=== PATIENT | female | born 1955 | race Caucasian/White ===

== ENCOUNTER → 2017-07-06 08:29 | Outpatient (CLI) | payer OTHER, SELFPAY ==
--- NOTE | 2017-07-06 | DI.CT.S_ITS ---
PROCEDURE: CT HEAD/BRAIN WO CON INDICATIONS: SUBDERAL HEMATOMA TECHNIQUE: Noncontrast 4.5 mm thick angled axial sections acquired from the foramen magnum to the vertex, with coronal and sagittal reformats. For radiation dose reduction, the following was used: automated exposure control, adjustment of mA and/or kV according to patient size. COMPARISON: [facility], CT, HEAD WITHOUT CONTRAST, 06/07/2017, 15:24. [facility], CT, HEAD WITHOUT CONTRAST, 05/21/2017, 16:47. FINDINGS: Image quality: Excellent. CSF spaces: Basal cisterns are patent. No extra-axial fluid collections. Ventricles are normal in size and shape. Brain: No midline shift. No intracranial masses or hemorrhage. Eason-white matter interface is normal. Skull and face: Calvarium and visualized facial bones are intact, without suspicious lesions. Sinuses: Visualized sinuses and mastoids are clear. IMPRESSION: No subdural hematoma found, normal appearing brain parenchyma. Dictated by: Cristian Fisher M.D. on 07/06/2017 at 9:01 Approved by: Cristian Fisher M.D. on 07/06/2017 at 9:04
== END ==
PROVIDERS: Family Provider Family Medicine; PCP Family Medicine; Visit Provider Family Medicine
DX: S06.5X9A Traumatic subdural hemorrhage with loss of consciousness of unspecified duration, initial encounter (principal)
CPT/HCPCS: 70450

== ENCOUNTER 2017-10-13 18:51 | Emergency (ER) | payer OTHER, SELFPAY ==
[2017-10-13] VITALS (7 sets, daily range): BP systolic 116–142; BP diastolic 71–89; PULSE 86–102; RESP 12–16; TEMP 37; O2SAT 97–100
--- NOTE | 2017-10-13 19:03 | DI.RAD.S_ITS ---
PROCEDURE: XR CHEST 1V INDICATIONS: chest pain TECHNIQUE: One view of the chest was acquired. COMPARISON: None. FINDINGS: Surgical changes and devices: None. Lungs and pleura: No pleural effusions or pneumothorax. Lungs are clear. Mediastinum: Mediastinal contours appear normal. Heart size is normal. Bones and chest wall: No suspicious bony lesions. Overlying soft tissues appear unremarkable. IMPRESSION: No acute cardiopulmonary disease process. Dictated by: Delaney Mcdermott MD, PhD on 10/13/2017 at 19:52 Approved by: Delaney Mcdermott MD, PhD on 10/13/2017 at 19:52
[2017-10-13 19:17] LABS: Prothrombin Time 10.8 SECONDS (10.1-12.7)
[2017-10-13 19:19] LABS: PTT Partial Thromboplastin Tim 27 SECONDS (26.4-36.2)
[2017-10-13 19:22] LABS: Add Manual Diff / Slide Review NO; Alanine Aminotransferase 18 IU/L (9-52); Albumin 4.5 g/dL (3.5-5.0); Albumin Globulin Ratio 1.4 (1.0-2.8); Alkaline Phosphatase 92 U/L (38-126); Aspartate Aminotransferase 22 IU/L (14-36); BUN Creatinine Ratio 22.2 (6-22); Basophils Percent Auto 0.6 % (0-2); Bilirubin Total 0.4 mg/dL (0.2-1.3); Blood Urea Nitrogen 20 mg/dL (7-17); Calcium 9.3 mg/dL (8.4-10.2); Carbon Dioxide 25 mmol/L (22-32); Chloride 103 mmol/L (98-107); Creatine Kinase 113 U/L (30-135); Eosinophils Percent Auto 3.2 % (2-4); Estimated Glomerular Filt Rate > 60.0 mL/min (>60); Globulin 3.2 g/dL (1.7-4.1); Glucose 187 mg/dL (80-110); HEMOLYSIS < 15 (0-50); Hematocrit 41.2 % (36-46); Hemoglobin 13.9 g/dL (12.0-16.0); Lipase 340 U/L (23-300); Lymphocytes Percent Auto 36.4 % (25-40); Mean Corpuscular HGB Conc 33.7 % (30-36); Mean Corpuscular Hemoglobin 29.7 PG (26-34); Mean Corpuscular Volume 88.1 fL (80-100); Monocytes Percent Auto 7.1 % (3-14); Neutrophils Absolute Auto 4800 /uL (3000-5900); Neutrophils Percent Auto 52.7 % (50-75); Platelet Count 250 X10^3/uL (150-400); Potassium 4.2 mmol/L (3.4-5.1); Red Blood Cell Count 4.68 X10^6/uL (4.0-5.2); Red Cell Distribution Width 14.5 % (11.6-14.8); Sodium 141 mmol/L (137-145); Total Protein 7.7 g/dL (6.3-8.2); White Blood Cell Count 9.2 X10^3/uL (4.5-11.0)
[2017-10-13 19:35] LABS: Troponin I < 0.012 ng/mL (0.01-0.034)
[2017-10-13 19:57] LABS: CKMB % Relative Index 1.9 % (1.5-5.0); Creatine Kinase MB 2.13 ng/mL (<2.37)
--- NOTE | 2017-10-13 19:58 | ED.CHESTPAIN ---
HPI - Chest Pain General Chief Complaint: Chest Pain Stated Complaint: CHEST PAIN Time Seen by Provider: 10/13/17 19:12 Source: patient Mode of arrival: ambulatory Limitations: no limitations History of Present Illness HPI narrative: 62-year-old with history of hypothyroidism presents to the emergency department with retrosternal chest pressure that woke her from sleep at 4 o'clock this morning. It has been consistent throughout the day and peaked at a 7/10 but is currently a 3/10. She denies provocation or palliation of her symptoms but does admit to some radiation to her jaw and teeth. She denies associated symptoms such as dizziness, weakness or lightheadedness. She has no nausea or vomiting. She denies any change in diet or medications. Related Data Home Medications Medication Instructions Recorded Confirmed levothyroxine 150 mcg PO SEE INSTRUCTIONS #0 12/05/15 sucralfate 1 gm PO BID #0 12/05/15 [ACIDOPHILUS ] 1 tab PO QDAY #0 06/07/17 aspirin 81 mg PO HS #0 06/07/17 nortriptyline 10 mg PO HS #0 06/07/17 ranitidine HCl 150 mg PO BID #0 06/07/17 Previous Rx's Medication Instructions Recorded nitroglycerin 0.4 mg SL Q5-15M PRN #30 tab 10/13/17 Allergies Allergy/AdvReac Type Severity Reaction Status Date / Time No Known Drug Allergies Allergy Verified 10/13/17 19:58 Review of Systems Review of Systems All systems reviewed & are unremarkable except as noted in HPI and below Constitutional Denies chills, Denies fever(s), Denies lethargy and Denies weakness Eyes Denies change in vision, Denies eye discharge, Denies irritation and Denies loss of vision ENT Ears, Nose, Mouth, and Throat: Denies change in voice, Denies neck pain and Denies sore throat Cardiovascular Reports chest pain, Denies irregular heart rhythm, Denies lightheadedness, Denies palpitations, Denies dyspnea, Denies dyspnea on exertion and Denies orthopnea Respiratory Denies cough, Denies dyspnea, Denies dyspnea on exertion and Denies wheezing Gastrointestinal Gastrointestinal: Denies abdominal pain, Denies change in bowel habits, Denies diarrhea, Denies nausea and Denies vomiting Genitourinary Denies hematuria, Denies flank pain, Denies urinary incontinence and Denies urinary urgency Musculoskeletal Denies neck pain Integumentary/Breasts Denies pruritus, Denies erythema, Denies rash and Denies wounds Neurologic Denies confusion, Denies loss of vision and Denies weakness Psychiatric Denies anxiety, Denies confusion, Denies depression, Denies homicidal ideation and Denies suicidal ideation Endocrine Denies palpitations Hematologic/Lymphatic Denies easy bruising Allergic/Immunologic Denies wheezing PFSH Surgical History Status post tubal ligation Social History Smoking Status: Former smoker Exam Narrative Exam Narrative: Pleasant 62-year-old female resting comfortably and in no obvious distress Initial Vital Signs Initial Vital Signs: Vital Signs Temperature 98.6 F 10/13/17 19:00 Pulse Rate 96 H 10/13/17 19:00 Respiratory Rate 16 10/13/17 19:00 Blood Pressure 142/89 H 10/13/17 19:00 Pulse Oximetry 100 10/13/17 19:00 Const General: cooperative and well developed Nutritional Appearance: well nourished Orientation: alert, awake, oriented x3 and not confused HENMN Head: normocephalic and atraumatic Ears: external ears normal and TM's normal bilaterally Nose: external nose normal and No nasal discharge Face and sinus: sinuses nontender, face symmetric, no sinus tenderness and No dry mucous membranes Mouth: oral mucosae normal and moist mucous membranes Teeth and gingiva: dentition normal Throat: tonsils normal and uvula midline Eyes General: appearance normal, both eyes and all related structures Eyelids: eyelids normal Conjunctivae: conjunctivae normal Sclera: sclerae normal Pupils: PERRL EOM: EOM intact bilaterally Neck Neck: normal visual inspection, trachea midline, No lymphadenopathy, No midline deformity and No JVD Lymphatic: No lymphedema Chest Chest: normal inspection of the chest Resp Effort & Inspection: normal respiratory effort, able to speak in complete sentences, no respiratory distress and no use of accessory muscles Auscultation: clear to auscultation bilaterally, no rales, no rhonchi and no wheezes Cardio Rate: regular rate Rhythm: regular rhythm Heart Sounds: no click, no gallops, no murmurs and no rubs Pulses: normal peripheral pulses GI Inspection: non-distended Palpation: soft, no hepatosplenomegaly, No guarding, No pulsatile mass and No tender Auscultation: normal bowel sounds Back/Spine/Pelvis Back: No CVA tenderness Cervical Spine: cervical ROM normal and No pain with cervical ROM Thoracic/Lumbar Spine: thoracic and lumbar spine normal to inspection Skin General: no rashes or lesions noted, No jaundice and No petechiae Neuro General: alert, oriented x3, gait normal and no focal motor deficits Speech: speech normal Extrem General: full ROM, no clubbing, cyanosis or edema, no pedal edema and no calf tenderness Psych Appearance: well kempt Mental Status: mental status grossly normal Attitude: cooperative Thought Content: normal and suicidality Judgment: judgment good Scores HEART Score Heart Score history: Slightly Suspicious Heart Score EKG: Normal Heart Score Age: 45-64 years old Heart Score risk factors: 1-2 risk factors Heart Score troponin: < or = to normal limit Heart Score Total: 2 Course Orders Ordered: Discontinued Medications Nitroglycerin (Nitrostat) 0.4 mg SL [id number] PRN PRN Reason: Chest Pain Last Admin: 10/13/17 21:19 Dose: 0.4 mg Admin: 10/13/17 21:03 Dose: 0.4 mg Vital Signs - 8 hr 10/13/17 21:19 10/13/17 21:50 10/13/17 22:39 Pulse Rate 102 H 97 H 96 H Respiratory Rate 13 14 Blood Pressure 132/84 H Blood Pressure [Right Arm] 116/71 124/76 H Pulse Oximetry 98 98 10/13/17 22:54 Pulse Rate 87 Respiratory Rate 16 Blood Pressure 124/76 H Blood Pressure [Right Arm] Pulse Oximetry 98 MDM - Chest Pain Lab Data Result diagrams: 10/13/17 19:00 10/13/17 19:00 Lab Results 10/13/17 10/13/17 10/13/17 Range/Units 19:00 19:00 19:00 WBC 9.2 (4.5-11.0) X10^3/uL RBC 4.68 (4.0-5.2) X10^6/uL Hgb 13.9 (12.0-16.0) g/dL Hct 41.2 (36-46) % MCV 88.1 (80-100) fL MCH 29.7 (26-34) PG MCHC 33.7 (30-36) % RDW 14.5 (11.6-14.8) % Plt Count 250 (150-400) X10^3/uL Neut % (Auto) 52.7 (50-75) % Lymph % (Auto) 36.4 (25-40) % [place] % (Auto) 7.1 (3-14) % Eos % (Auto) 3.2 (2-4) % Baso % (Auto) 0.6 (0-2) % Neut # (Auto) 4800 (5546-4612) /uL PT 10.8 (10.1-12.7) SECONDS INR 1.0 (0.9-1.3) APTT 27 (26.4-36.2) SECONDS Sodium 141 (137-145) mmol/L Potassium 4.2 (3.4-5.1) mmol/L Chloride 103 (98-107) mmol/L Carbon Dioxide 25 (22-32) mmol/L BUN 20 H (7-17) mg/dL Creatinine 0.90 (0.52-1.04) mg/dL Estimated GFR > 60.0 (>60) mL/min BUN/Creatinine Ratio 22.2 H (6-22) Glucose 187 H (80-110) mg/dL Calcium 9.3 (8.4-10.2) mg/dL Total Bilirubin 0.4 (0.2-1.3) mg/dL AST 22 (14-36) IU/L ALT 18 (9-52) IU/L Alkaline Phosphatase 92 (38-126) U/L Total Creatine Kinase 113 (30-135) U/L CK-MB (CK-2) 2.13 (<2.37) ng/mL CK-MB (CK-2) Rel Index 1.9 (1.5-5.0) % Troponin I < 0.012 (0.01-0.034) ng/mL Total Protein 7.7 (6.3-8.2) g/dL Albumin 4.5 (3.5-5.0) g/dL Globulin 3.2 (1.7-4.1) g/dL Albumin/Globulin Ratio 1.4 (1.0-2.8) Lipase 340 H (23-300) U/L Discharge Plan Departure Patient Disposition: Home Clinical Impression: Chest pain Discharge Date/Time: 10/13/17 22:55 Interventions: ED Discharge Assessment Last Done: 10/13/17 22:54 Instructions: DI for Chest Pain Activity Restrictions/Additional Instructions: *You have been diagnosed with [ chest pain ] *What to do: *Take medications as directed *Follow up with your primary care provider in 2-3 days, call for an appointment. Let them know you were seen in the Emergency Department and that we ask that you be seen in follow up *Return to ER if you should have any new, worsening or concerning symptoms, such as [ worsening pain, shortness of breath, nausea, vomiting or other bothersome symptoms] Prescriptions: New nitroglycerin 0.4 mg tablet, sublingual 0.4 mg SL Q5-15M PRN (Reason: chest pain) Qty: 30 RF: 0 No Action levothyroxine 150 MCG tablet 150 mcg PO SEE INSTRUCTIONS Qty: 0 RF: 0 sucralfate 1 GM tablet 1 gm PO BID Qty: 0 RF: 0 nortriptyline 10 MG capsule 10 mg PO HS Qty: 0 RF: 0 ranitidine HCl 150 MG tablet 150 mg PO BID Qty: 0 RF: 0 aspirin 81 MG tablet,delayed release (DR/EC) 81 mg PO HS Qty: 0 RF: 0 [ACIDOPHILUS ] 1 tab PO QDAY Qty: 0 RF: 0 Referrals: Rosaura Dietz MD [Primary Care Provider] -
[2017-10-13] MEDS: NITROGLYCERIN 0.4 MG SL TAB SL ×2 (21:03→21:19)
--- NOTE | 2017-10-13 21:54 | PC.NURSE ---
assessed patient after second nitro. pt. pain down to a 1/10. Refuses third ntg. feels much better. VS back to patient's normal range.
== END 2017-10-13 22:55 | disposition home or self-care (01) ==
PROVIDERS: Emergency Provider Emergency Medicine; Family Provider Family Medicine; PCP Family Medicine
DX: R07.89 Other chest pain (principal)
CPT/HCPCS: 71045; 80053; 82550; 82553; 83690; 84484; 85025; 85610; 85730; 93005; 93010; 99283; 99285

== ENCOUNTER → 2017-11-29 13:47 | Outpatient (CLI) | payer OTHER, SELFPAY ==
--- NOTE | 2017-11-29 | DI.ECHO.S_ITS ---
[facility]---------+ [facility] +---------+ : : [address] [place] : : : : [id number] : : : : Phone: [phone]+ Echocardiogram Report + + :Name: BASILIO VALDEZ Study Date: 11/29/2017 Height: 68 in : :[facility] Weight: 179 lb : : Gender: Female BSA: 1.9 m2 : :: 1955 Age: 62 yrs BP: 116/72 mmHg: :Reason For Study: Palpitations : :Ordering Physician: Isis : :Emily Performed By: Rosi Fernández : :Referring: Dr. Rosaura Dietz : + + Interpretation Summary The left ventricle is normal in size. The ejection fraction is estimated to be 35-40%. There is moderate global hypokinesis of the left ventricle. There is a significant dyssynchronous contraction pattern, consistent with a conduction abnormality. The right ventricle is normal size. The right ventricular systolic function is normal. In apical 4 chamber views, RV apex appears to be hypokinetic. There is mild tricuspid regurgitation. The right ventricular systolic pressure is estimated to be at least 34 mmHg based on an estimated right atrial pressure of 3 mm Hg. The ascending aorta is mildly enlarged. The patient had frequent PVCs during the exam. Procedure: A two-dimensional transthoracic echocardiogram with color flow and Doppler was performed. The study quality was technically adequate. There is no prior echocardiogram noted for this patient. The heart rate ranged between 80-86 bpm during the study. The patient had frequent PVCs during the exam. Left Ventricle: The left ventricle is normal in size. There is normal left ventricular wall thickness. There is no thrombus. A false chord is noted (normal variant). The ejection fraction is estimated to be 35-40%. There is moderate global hypokinesis of the left ventricle. There is a significant dyssynchronous contraction pattern, consistent with a conduction abnormality. MV E/A: 0.53. Right Ventricle: The right ventricle is normal size. A calcified moderator band is seen in the right ventricle. The right ventricular systolic function is normal. In apical 4 chamber views, RV apex appears to be hypokinetic. Atria: The left atrial size is normal. Right atrial size is normal. The interatrial septum is intact with no evidence for an atrial septal defect. Mitral Valve: The mitral valve leaflets appear normal. There is no evidence of stenosis, fluttering, or prolapse. There is trace mitral regurgitation. Aortic Valve: The aortic valve opens well. The aortic valve is not well visualized. There is no aortic valve stenosis. No aortic regurgitation is present. Tricuspid Valve: The tricuspid valve is normal. There is mild tricuspid regurgitation. The right ventricular systolic pressure is estimated to be at least 34 mmHg based on an estimated right atrial pressure of 3 mm Hg. Pulmonic Valve: The pulmonic valve is not well seen, but is grossly normal. There is mild pulmonic regurgitation. Great Vessels: The aortic root is normal size. The ascending aorta is mildly enlarged. The aortic arch is at the upper limits of normal in size. The IVC is of normal diameter and collapses greater than 50% with a sniff. This suggests a low right atrial pressure of 3 mm Hg. Pericardium/ Pleura There is no pericardial effusion. There is no pleural effusion. MMode/2D Measurements & Calculations LVIDd: 5.2 cm Ao root diam: 3.7 cm LVIDs: 3.6 cm Aortic Jxn: 2.8 cm FS: 30.0 % asc Aorta Diam: 3.6 cm EPSS: 1.5 cm Ao Arch Diam (Prox Trans): 3.3 cm IVSd: 0.98 cm LVPWd: 0.81 cm LV miles. diameter/BSA (cm/m^2): 2.7 LV sys. diameter/BSA (cm/m^2): 1.9 LA dimension: 3.7 cm RA long axis: 4.2 cm LA A2 area: 16.6 cm2 RA area: 13.9 cm2 LA A4 area: 16.1 cm2 RA vol: 39.6 ml LA length (vol): 4.8 cm RA : 20.3 ml/m2 LA vol: 47.2 ml IVC diam: 1.9 cm LA vol index: 24.2 ml/m2 RVDd major: 5.7 cm RVD1 (basal): 3.1 cm RVD2 (mid): 2.1 cm Doppler Measurements & Calculations Ao V2 max: 107.7 cm/sec MV E max justyn: 45.9 cm/sec Ao V2 mean: 77.3 cm/sec MV A max justyn: 87.2 cm/sec Ao max P.6 mmHg MV E/A: 0.53 Ao mean P.7 mmHg MV dec time: 0.14 sec Ao V2 VTI: 23.6 cm MV P1/2t: 40.5 msec TR max justyn: 279.6 cm/sec MV P1/2t max justyn: 45.6 cm/sec TR max P.3 mmHg MVA(P1/2t): 5.4 cm2 PA V2 max: 62.8 cm/sec PA V2 mean: 43.9 cm/sec PA mean P.89 mmHg PA Accel Time: 0.11 sec Reading Physician:ANNALISE
== END ==
PROVIDERS: PCP Family Medicine; Visit Provider Internal Medicine Cardiovascular Disease
DX: I07.1 Rheumatic tricuspid insufficiency (principal); R00.2 Palpitations
CPT/HCPCS: 93306

== ENCOUNTER → 2018-02-05 09:21 | Outpatient (CLI) | payer MEDICARE, OTHER, SELFPAY ==
--- NOTE | 2018-02-05 09:25 | DI.MG.S_ITS ---
BILATERAL DIGITAL SCREENING MAMMOGRAM 3D/2D WITH CAD: 02/05/2018 CLINICAL: Routine screening. Comparison is made to exams dated: 01/22/2017 mammogram, 02/08/2013 mammogram, and 11/27/2011 mammogram - [facility]. The tissue of both breasts is heterogeneously dense. This may lower the sensitivity of mammography. Current study was also evaluated with a Computer Aided Detection (CAD) system. No significant masses, calcifications, or other findings are seen in either breast. There has been no significant interval change. IMPRESSION: NEGATIVE There is no mammographic evidence of malignancy. A 1 year screening mammogram is recommended. This exam was interpreted at Station ID: [id number]. NOTE: For mammograms, a report in lay terms will be sent to the patient. Approximately 15% of breast malignancies will not be visualized mammographically. In the management of a palpable breast mass, a negative mammogram must not discourage biopsy of a clinically suspicious lesion. Electronically Signed By: Josey araya/nohelia:02/07/2018 15:40:55 letter sent: Normal Exam ACR BI-RADS Category 1: Negative [id number]
== END ==
PROVIDERS: PCP Family Medicine; Visit Provider Family Medicine
DX: Z12.31 Encounter for screening mammogram for malignant neoplasm of breast (principal)
CPT/HCPCS: 77063; 77067

== ENCOUNTER 2018-06-12 08:51 | Emergency (ER) | payer OTHER, SELFPAY ==
[2018-06-12 09:05] VITALS: BP 124/79; PULSE 84; RESP 18; TEMP 36.7; O2SAT 99; BMI 30.1
--- NOTE | 2018-06-12 09:08 | ED.DENTAL ---
HPI - Dental/Oral General Chief complaint: Dental/Oral Stated complaint: Toothache,thinks infected Time Seen by Provider: 06/12/18 09:05 Source: patient Mode of arrival: ambulatory Limitations: no limitations History of Present Illness HPI Narrative: This is a 63-year-old female who comes to the emergency department with complaint of dental pain in the left lower back tooth. Patient states that it started around Wednesday it has been increasing. She was trying to wait until a dental appointment on Wednesday but has not been able to control her pain at home. Her main concern is infection. She had quite a bit of dental work on her upper teeth in the last week. She states he seemed to be doing fine. She appreciates some swelling of the face, she has some pain that radiates towards her left ear. She has not had any fevers. She states it is a little bit painful to swallow. She has not noticed any swelling of her mouth, tongue or oropharynx. She has not had any drainage or purulent fluid. She states that the tooth her looks black. She states initially she thought that was just discoloration from coffee. She is supposed to return to the dentist on Wednesday. She has been taking Tylenol 325, 1-2 tablets every 8 hours for pain control. She states she does have diabetes. MD Complaint: tooth pain Location: Tooth # (17) 1. pain Related Data Home Medications Medication Instructions Recorded Confirmed levothyroxine 150 mcg PO SEE INSTRUCTIONS #0 12/05/15 sucralfate 1 gm PO BID #0 12/05/15 [ACIDOPHILUS ] 1 tab PO QDAY #0 06/07/17 aspirin 81 mg PO HS #0 06/07/17 nortriptyline 10 mg PO HS #0 06/07/17 ranitidine HCl 150 mg PO BID #0 06/07/17 02/28/18 omeprazole 40 mg capsule,delayed 40 mg PO BID cap 02/28/18 02/28/18 release Previous Rx's Medication Instructions Recorded nitroglycerin 0.4 mg SL Q5-15M PRN #30 tab 10/13/17 penicillin V potassium 500 mg PO QID #40 tab 06/12/18 Allergies Allergy/AdvReac Type Severity Reaction Status Date / Time No Known Drug Allergies Allergy Verified 06/12/18 09:12 Review of Systems Review of Systems ROS Unobtainable: All systems reviewed & are unremarkable except as noted in HPI and below Constitutional Denies chills, Denies fever(s) and Denies headache(s) ENT Ears, Nose, Mouth, and Throat: Reports as per HPI, Reports dental pain, Denies dysphagia, Reports otalgia (left ear), Denies headache(s), Denies lip swelling, Denies nasal congestion, Denies sinus pain, Denies sore throat, Denies throat swelling and Denies tongue swelling Cardiovascular Denies dyspnea Respiratory Denies dyspnea Gastrointestinal Gastrointestinal: Denies dysphagia, Reports nausea and Denies vomiting Integumentary/Breasts Denies erythema, Denies rash and Denies wounds Neurologic Denies headache(s) Allergic/Immunologic Denies lip swelling, Denies throat swelling and Denies tongue swelling [facility] Medical History (Updated 06/12/18 @ 09:28 by Shannon Linton DO) Diabetes (Chronic) Surgical History Status post tubal ligation Social History Smoking Status: Former smoker Social History Smoking Status: Former smoker Exam Narrative Exam Narrative: GEN: well nourished, well appearing female, alert and oriented x 3, patient appears to be in mild distress. HEENT: Atraumatic, pupils are equal round reactive to light, extraocular movements are intact, nares are clear, TMs are clear with no fluid, there is no conjunctival pallor. Throat is clear without any exudates, erythema, tonsillar enlargement or uvular deviation, see below. Patient has some tenderness over the posterior mandible dental area externally. There is possibly some very mild swelling although it is to discern. There is no erythema or skin color changes. Patient does have some discomfort with trying to open her jaw. She has very mild lymphadenopathy on the left in comparison to right. HEART: Regular rate and rhythm without murmur, clicks, rubs. LUNGS:Lungs clear to auscultation, no wheezes, rales, crackles, chest moves symmetrically ABD:bowel sounds normal, soft, non-tender, no guarding, rebound, rigidity, no masses noted, no hepatosplenomegaly MSCL: full range of motion, normal gait NEURO:CN 2-12 intact, sensation normal Initial Vital Signs Initial Vital Signs: Vital Signs Temperature 98.0 F 06/12/18 09:05 Pulse Rate 84 06/12/18 09:05 Respiratory Rate 18 06/12/18 09:05 Blood Pressure 124/79 06/12/18 09:05 Pulse Oximetry 99 06/12/18 09:05 HENSD Mouth: oral mucosae normal, tongue normal, oropharynx normal, moist mucous membranes, No drooling and No muffled voice Teeth and gingiva: caries and other (patient has swelling surrounding tooth #17. multiple fillings in adjacent) Throat: posterior oropharynx normal, tonsils normal, no peritonsillar masses, uvula not displaced and no uvular edema Course Orders Ordered: Discontinued Medications Penicillin V Potassium (Veetids) 500 mg PO NOW ONE Stop: 06/12/18 09:17 Last Admin: 06/12/18 09:55 Dose: 500 mg MDM - Dental/Oral MDM Narrative Medical decision making narrative: Patient does have swelling consistent with possible infection. Plan for Pap this would be K, patient states she does not have any allergies to medications. We discussed she can increase her Tylenol to a 1000 every 8 hours if she does not have any contraindications to ibuprofen she can take that as well. she has follow up Wednesday with the dentist. We did discuss signs and symptoms to watch for and return to ED. Discharge Plan Departure Patient Disposition: Home Clinical Impression: Dental infection Discharge Date/Time: 06/12/18 09:55 Interventions: ED Discharge Assessment Last Done: 06/12/18 09:55 Instructions: Tooth Abscess Activity Restrictions/Additional Instructions: Follow up with your dentist on Wednesday. Take antibiotics until gone. You may take tylenol up to 1000mg every 8 hours, you may take ibuprofen up to 800 mg every 8 hours if he did not have any contraindications. He may also use or gel topically to the affected area 4 times daily or prior to eating. Return to the emergency department for fevers greater than 100.4, rapidly worsening swelling, redness, rapidly worsening pain, swelling of the tongue, airway, neck or any difficulty breathing. Prescriptions: New penicillin V potassium 500 mg tablet 500 mg PO QID Qty: 40 RF: 0 No Action levothyroxine 150 MCG tablet 150 mcg PO SEE INSTRUCTIONS Qty: 0 RF: 0 sucralfate 1 GM tablet 1 gm PO BID Qty: 0 RF: 0 nortriptyline 10 MG capsule 10 mg PO HS Qty: 0 RF: 0 ranitidine HCl 150 MG tablet 150 mg PO BID Qty: 0 RF: 0 aspirin 81 MG tablet,delayed release (DR/EC) 81 mg PO HS Qty: 0 RF: 0 [ACIDOPHILUS ] 1 tab PO QDAY Qty: 0 RF: 0 nitroglycerin 0.4 mg tablet, sublingual 0.4 mg SL Q5-15M PRN (Reason: chest pain) Qty: 30 RF: 0 omeprazole 40 mg capsule,delayed release(DR/EC) 40 mg PO BID RF: 0 Referrals: Rosaura Dietz MD [Primary Care Provider] - ED Cosign/Signout Cosign ED Attending Cosignature Attestation: I was immediately available in the department for consultation. This documentation has been reviewed and I agree with assessment and plan. Supervised by Shannon Linton DO
[2018-06-12] MEDS: PENICILLIN VK 250 MG TABLET 500 MG PO (09:55)
--- NOTE | 2018-06-12 10:02 | PC.NURSE ---
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
== END 2018-06-12 09:55 | disposition home or self-care (01) ==
PROVIDERS: Emergency Provider Emergency Medicine; PCP Family Medicine
DX: K04.7 Periapical abscess without sinus (principal)
CPT/HCPCS: 99282; 99283

== ENCOUNTER → 2018-06-24 09:08 | Outpatient (CLI) | payer OTHER, SELFPAY | PROVIDERS: PCP Family Medicine; Visit Provider Family Medicine | DX: Z13.820 Encounter for screening for osteoporosis (principal); Z78.0 Asymptomatic menopausal state; E07.9 Disorder of thyroid, unspecified; L98.9 Disorder of the skin and subcutaneous tissue, unspecified; E11.9 Type 2 diabetes mellitus without complications; R29.890 Loss of height; Z82.62 Family history of osteoporosis; Z87.891 Personal history of nicotine dependence; Z78.9 Other specified health status | CPT/HCPCS: 77080; 77081; 87070; 87077; 87186; 87205 ==